=== PATIENT | female | born 1975 | race Caucasian/White ===

== ENCOUNTER 2017-10-20 16:30 | Emergency (ER) | payer OTHER ==
[~2017-10-20] VITALS: Ht 165.1 cm; Wt 65.3 kg
[2017-10-20 16:44] VITALS: BP 144/95
--- NOTE | 2017-10-20 16:48 | NUR ---
patient ambulated to rm 6 with steady gait. Gave report to Kennedi KRAUSE.
[2017-10-20] MEDS ORDERED: NACL 0.9% 1,000 ML IV SCH (16:55)
[2017-10-20] MEDS ORDERED: MORPHINE SULFATE 4 MG/ML SYR IVP ONE (16:55)
[2017-10-20] MEDS ORDERED: METOCLOPRAMIDE 10 MG/2 ML INJ VIAL IVP ONE (16:55)
--- NOTE | 2017-10-20 17:03 | NUR ---
epigastric pain x 2 wks with n/v. patient reports of vomitting "black..like old blood" emesis today. pt denies dysuria, fever/chills. Resp even and unlabored, in nad. pt crying because of emotional problems with her son. Pt reports last using meth last week. hx--gastric bypass 2011, meth use
[2017-10-20 17:20] LABS: BASOPHILS # (AUTO) 0.1 K/uL (0.00-0.22); BASOPHILS % (AUTO) 0.9 % (0.0-2.0); EOSINOPHILS % (AUTO) 0.4 % (0.0-4.0); HEMATOCRIT 27.3 % (36-48); HEMOGLOBIN 8.2 g/dL (12.0-16.0); LYMPHOCYTES # (AUTO) 1.6 K/uL (2.5-16.5); LYMPHOCYTES % (AUTO) 28.5 % (20.5-51.1); MEAN CORPUSCULAR HEMOGLOBIN 20 pg (27-31); MEAN CORPUSCULAR HGB CONC 30 g/dL (33-37); MEAN CORPUSCULAR VOLUME 66.7 fL (80-94); MONOCYTES # (AUTO) 0.4 K/uL (0.8-1.0); MONOCYTES % (AUTO) 7.5 % (1.7-9.3); NEUTROPHILS # (AUTO) 3.6 K/uL (1.8-7.7); NEUTROPHILS % (AUTO) 62.7 % (42.2-75.2); PLATELET COUNT (AUTO) 287 K/uL (140-450); RED BLOOD CELL COUNT(AUTO) 4.09 MIL/uL (4.20-5.40); RED CELL DISTRIBUTION WIDTH 19.8 % (11.6-13.7); WHITE BLOOD COUNT (AUTO) 5.7 K/uL (4.8-10.8)
[2017-10-20 17:27] LABS: ANION GAP 9.1 (8-16); CARBON DIOXIDE 28.7 mmol/L (21-32); CREATININE 0.5 mg/dL (0.6-1.3); POTASSIUM 3.8 mmol/L (3.5-5.1)
[2017-10-20 17:28] LABS: APPEARANCE,URINE SL CLOUDY (CLEAR); BILIRUBIN,URINE NEGATIVE (NEGATIVE); BLOOD, URINE TRACE-I (NEGATIVE); COLOR,URINE YELLOW (YELLOW); LEUKOCYTE ESTERASE ,URINE NEGATIVE (NEGATIVE); NITRITE, URINE POSITIVE (NEGATIVE); PH,URINE 6.5 (5.0-9.0); UGLUCOSE NEGATIVE (NEGATIVE)
[2017-10-20 17:33] LABS: ALBUMIN 3.5 g/dL (3.4-5.0); TOTAL BILIRUBIN 0.3 mg/dL (0.0-1.0)
[2017-10-20 17:34] LABS: BARBITURATE, URINE NEG. ng/ml (NEG <=200); BENZODIAZEPINE, URINE NEG. ng/mL (NEG <=200); CANNABINOID, URINE POS. ng/mL (NEG <=50); COCAINE, URINE NEG. ng/mL (NEG <=300); OPIATE, URINE NEG. ng/mL (NEG <=2000); PHENCYCLIDINE SCREEN,URINE NEG. ng/mL (NEG <=25)
[2017-10-20 18:08] LABS: RBC,URINE 3-10 (FEW) /HPF (0-5); WBC,URINE 0-5 (RARE) /HPF (0-5)
--- NOTE | 2017-10-20 18:11 | NUR ---
No acute change in conditon, pt with eyes closed. Resp even and unlabored, in NAD. VSS. Denies any abd pain, n/v.
--- NOTE | 2017-10-20 18:54 | NUR ---
Samuel wade in ED - 10/20/17 at 1903 by JUNE medicated as ordered, pt currently denies any chest pain.
[2017-10-20 19:06] VITALS: BP 123/74
== END 2017-10-20 19:08 | disposition home or self-care (01) ==
LOC: MED 16:30
DX: R10.13 Epigastric pain (principal); N39.0 Urinary tract infection, site not specified; D64.9 Anemia, unspecified; F15.10 Other stimulant abuse, uncomplicated; F12.10 Cannabis abuse, uncomplicated
CPT/HCPCS: 36415; 74176; 80053; 80305; 81001; 83690; 84703; 85025; 87086; 87186; 96361; 96374; 96375; 99285; J2270; J2765; J7030

== ENCOUNTER 2021-01-20 15:19 | Emergency (ER) | payer OTHER, SELFPAY ==
[~2021-01-20] VITALS: Ht 162.6 cm; Wt 73.9 kg
[2021-01-20 15:49] VITALS: BP 104/60
--- NOTE | 2021-01-20 15:59 | NUR ---
Pt triaged, remains in tent.
--- NOTE | 2021-01-20 16:10 | NUR ---
ATTEMPTED EKG X 3; UNSUCCESSFUL AT THIS TIME DUE TO WANDERING LEADS.
[2021-01-20] MEDS ORDERED: ASPIRIN 325 MG TAB PO ONE (16:25)
--- NOTE | 2021-01-20 16:32 | NUR ---
RHODA COLLECTED, WALKED TO LAB AND HANDED TO CPT. SAMANTHA
--- NOTE | 2021-01-20 16:43 | NUR ---
Patient ambulated to ER bed 3.
[2021-01-20 17:03] LABS: BASOPHILS % (AUTO) 0.8 % (0.0-2.0); EOSINOPHILS # (AUTO) 0.1 K/uL (0-0.4); EOSINOPHILS % (AUTO) 1.9 % (0.0-4.0); HEMATOCRIT 29.7 % (36-48); HEMOGLOBIN 9.3 g/dL (12.0-16.0); LYMPHOCYTES # (AUTO) 1.4 K/uL (2.5-16.5); LYMPHOCYTES % (AUTO) 33.9 % (20.5-51.1); MEAN CORPUSCULAR HEMOGLOBIN 23 pg (27-31); MEAN CORPUSCULAR HGB CONC 31 g/dL (33-37); MEAN CORPUSCULAR VOLUME 72.9 fL (80-94); MONOCYTES # (AUTO) 0.6 K/uL (0.8-1.0); MONOCYTES % (AUTO) 14.8 % (1.7-9.3); NEUTROPHILS % (AUTO) 48.6 % (42.2-75.2); PLATELET COUNT (AUTO) 241 K/uL (140-450); RED BLOOD CELL COUNT(AUTO) 4.07 MIL/uL (4.20-5.40); RED CELL DISTRIBUTION WIDTH 21.1 % (11.6-13.7)
[2021-01-20 17:20] LABS: ALBUMIN 3.5 g/dL (3.4-5.0); ANION GAP 12.4 (8-16); CARBON DIOXIDE 25.3 mmol/L (21-32); CREATININE 0.7 mg/dL (0.6-1.3); POTASSIUM 3.7 mmol/L (3.5-5.1); TOTAL BILIRUBIN 0.2 mg/dL (0.0-1.0)
[2021-01-20] MEDS ORDERED: ASPIRIN 325 MG TAB ONE (17:44)
--- NOTE | 2021-01-20 18:24 | NUR ---
45 Y/O F BIB SELF FROM HOME, PATIENT PRESENTS TO ED WITH LEFT SIDED CHEST TIGHTNESS THAT RADIATES TO L NECK, NON PRODUCTIVE COUGH, SORE THROAT, MYALGIA, CHILLS, [place], THROAT TIGHTNESS, LOSS OF TASTE AND SMELL, AND CHILLS. DENIES N/V/D; SKIN IS PINK/WARM/DRY; AAOX4 WITH EVEN AND STEADY GAIT; HR EVEN AND REGULAR; PATIENT STATES PAIN OF 6/10 AT THIS TIME; PATIENT POSITIONED FOR COMFORT; HOB ELEVATED; BEDRAILS UP X2; BED DOWN. ER MD MADE AWARE OF PT STATUS. PMH: ANXIETY Meds: BUSPIRONE NKA
--- NOTE | 2021-01-20 19:05 | NUR ---
REPORT RECIEVED FROM [facility]
--- NOTE | 2021-01-20 19:10 | NUR ---
Pt report given to ANN MARIE KRAUSE. Transfer of care at this time.
--- NOTE | 2021-01-20 19:14 | NUR ---
URINE IN DIRTY UTILITY.
--- NOTE | 2021-01-20 19:22 | NUR ---
HANDOFF GIVEN TO ANIA AT THIS TIME. TRANSFER OF CARE.
--- NOTE | 2021-01-20 19:23 | NUR ---
RECEIVED REPORT FROM ANN MARIE KRAUSE FOR CONTINUITY OF CARE
[2021-01-20 19:41] LABS: BARBITURATE, URINE NEGATIVE ng/ml (NEG <=200); BENZODIAZEPINE, URINE NEGATIVE ng/mL (NEG <=200); CANNABINOID, URINE POSITIVE ng/mL (NEG <=50); COCAINE, URINE NEGATIVE ng/mL (NEG <=300); OPIATE, URINE NEGATIVE ng/mL (NEG <=2000); PHENCYCLIDINE SCREEN,URINE NEGATIVE ng/mL (NEG <=25)
[2021-01-20 22:21] VITALS: BP 116/62
--- NOTE | 2021-01-20 22:21 | NUR ---
Patient discharged with v/s stable. Written and verbal after care instructions given and explained. Patient verbalized understanding. Ambulatory with steady gait. All questions addressed prior to discharge. Advised to follow up with PMD.
== END 2021-01-20 22:21 | disposition home or self-care (01) ==
LOC: MED 15:19
DX: U07.1 COVID-19 (principal); F41.9 Anxiety disorder, unspecified; F12.10 Cannabis abuse, uncomplicated
CPT/HCPCS: 36415; 71045; 80053; 80305; 81002; 81025; 84484; 85025; 93005; 99285; U0003

== ENCOUNTER 2023-02-24 17:44 | Emergency (ER) | payer BC, OTHER ==
[~2023-02-24] VITALS: Ht 162.6 cm; Wt 76.7 kg
[2023-02-24 17:56] VITALS: BP 146/56; PULSE 61; RESP 18; TEMP 97.8; O2SAT 100
[2023-02-24] MEDS ORDERED: diphenhydrAMINE 50 MG/ML VIAL IVP ONE (18:55)
[2023-02-24] MEDS ORDERED: METOCLOPRAMIDE 10 MG/2 ML INJ VIAL IVP ONE (18:55)
[2023-02-24] MEDS ORDERED: KETOROLAC 30 MG/ML VIAL IVP ONE (18:55)
[2023-02-24] MEDS ORDERED: NACL 0.9% 2,000 ML IV ONE (18:55)
[2023-02-24 19:15] LABS: BASOPHILS % (AUTO) 0.5 % (0.0-2.0); EOSINOPHILS % (AUTO) 0.5 % (0.0-4.0); HEMOGLOBIN 10.6 g/dL (12.0-16.0); LYMPHOCYTES # (AUTO) 2.3 K/uL (2.5-16.5); LYMPHOCYTES % (AUTO) 32.2 % (20.5-51.1); MEAN CORPUSCULAR HEMOGLOBIN 26 pg (27-31); MEAN CORPUSCULAR HGB CONC 32 g/dL (33-37); MEAN CORPUSCULAR VOLUME 80.8 fL (80-94); MONOCYTES # (AUTO) 0.7 K/uL (0.8-1.0); MONOCYTES % (AUTO) 9.5 % (1.7-9.3); NEUTROPHILS % (AUTO) 57.3 % (42.2-75.2); PLATELET COUNT (AUTO) 220 K/uL (140-450); RED BLOOD CELL COUNT(AUTO) 4.09 MIL/uL (4.20-5.40); RED CELL DISTRIBUTION WIDTH 18.1 % (11.6-13.7)
[2023-02-24 19:34] LABS: ALBUMIN 3.8 g/dL (3.4-5.0); ANION GAP 14.6 (8-16); CALCIUM 8.7 mg/dL (8.5-10.1); CARBON DIOXIDE 25.6 mmol/L (21-32); CREATININE 0.6 mg/dL (0.6-1.3); POTASSIUM 4.2 mmol/L (3.5-5.1); TOTAL BILIRUBIN 0.4 mg/dL (0.0-1.0); TOTAL PROTEIN, SERUM 7.4 g/dL (6.4-8.2)
[2023-02-24] MEDS ORDERED: diphenhydrAMINE 50 MG/ML VIAL ONE (20:03)
[2023-02-24] MEDS ORDERED: KETOROLAC 30 MG/ML VIAL ONE (20:03)
[2023-02-24] MEDS ORDERED: METOCLOPRAMIDE 10 MG/2 ML INJ VIAL ONE (20:03)
[2023-02-24 20:28] LABS: APPEARANCE,URINE CLEAR (CLEAR); BILIRUBIN,URINE 1+ (NEGATIVE); BLOOD, URINE 3+ (NEGATIVE); COLOR,URINE YELLOW (YELLOW); LEUKOCYTE ESTERASE ,URINE NEGATIVE (NEGATIVE); NITRITE, URINE NEGATIVE (NEGATIVE); PROTEIN,URINE TRACE (NEGATIVE); UGLUCOSE NEGATIVE (NEGATIVE)
[2023-02-24 20:44] LABS: BACTERIA,URINE FEW /HPF (None Seen); MUCUS,URINE 3+ /LPF (None Seen); RBC,URINE TOO NUMEROUS TO COUN /HPF (0-5); WBC,URINE NONE SEEN /HPF (0-5)
[2023-02-25 00:56] VITALS: TEMP 97.8
[2023-02-25 02:05] VITALS: BP 107/70; PULSE 62; RESP 17; O2SAT 99
== END 2023-02-25 02:05 | disposition home or self-care (01) ==
LOC: MED 17:44
DX: R31.9 Hematuria, unspecified (principal); R10.9 Unspecified abdominal pain; E86.0 Dehydration; F41.9 Anxiety disorder, unspecified; F15.90 Other stimulant use, unspecified, uncomplicated; Z79.899 Other long term (current) drug therapy
CPT/HCPCS: 36415; 74150; 80053; 81001; 81025; 82009; 85025; 96361; 96374; 96375; 99285; J1200; J1885; J2765; J7030